=== PATIENT | female | born 1945 | race Caucasian/White ===

== ENCOUNTER 2023-12-07 18:05 | Emergency (ER) | payer MEDICARE ==
[~2023-12-07] VITALS: Ht 157.5 cm; Wt 72.0 kg
[2023-12-07] VITALS (10 sets, daily range): BP systolic 114–130; BP diastolic 45–67
[2023-12-07] MEDS ORDERED: GABAPENTIN100 MG PO (18:25)
[2023-12-07] MEDS ORDERED: NORVASC5 M1 PO (18:26)
[2023-12-07] MEDS ORDERED: CYMBALTA60 MG PO (18:28)
[2023-12-07] MEDS ORDERED: HYDROCHLOROT25 MG PO (18:28)
[2023-12-07] MEDS ORDERED: LISINOPRIL10 MG PO (18:29)
[2023-12-07] MEDS ORDERED: CARVEDILOL3.125 MG PO (18:29)
[2023-12-07] MEDS ORDERED: LEVOTHYROXIN50 MCG PO (18:30)
[2023-12-07] MEDS ORDERED: LIPITOR40 M1 PO (18:30)
[2023-12-07] MEDS ORDERED: TRAZODONE50 MG PO ×2 (18:31→18:32)
[2023-12-07] MEDS ORDERED: TIZANIDINE4 MG PO (18:32)
[2023-12-07] MEDS ORDERED: BREO ELLIPTA 101 INH (18:33)
[2023-12-07] MEDS ORDERED: ALBUTEROL SUL0.083 % IN (18:34)
== END 2023-12-07 20:45 | disposition home or self-care (01) ==
LOC: ED 18:05
DX: S00.83XA Contusion of other part of head, initial encounter (principal); I10 Essential (primary) hypertension; W01.0XXA Fall on same level from slipping, tripping and stumbling without subsequent striking against object, initial encounter; Y92.009 Unspecified place in unspecified non-institutional (private) residence as the place of occurrence of the external cause